=== PATIENT | male | born 1995 | race Caucasian/White ===

== ENCOUNTER 2018-04-26 08:50 | Emergency (ER) | payer MEDICAID ==
[~2018-04-26] VITALS: Ht 180.3 cm; Wt 66.0 kg
[2018-04-26 08:57] VITALS: BP 124/75
== END 2018-04-26 09:52 | disposition home or self-care (01) ==
LOC: ER 08:51
DX: S62.624A Displaced fracture of middle phalanx of right ring finger, initial encounter for closed fracture (principal); Z88.0 Allergy status to penicillin; Z88.1 Allergy status to other antibiotic agents; Z88.2 Allergy status to sulfonamides; W10.8XXA Fall (on) (from) other stairs and steps, initial encounter; Y93.89 Activity, other specified; Y92.89 Other specified places as the place of occurrence of the external cause; Y99.8 Other external cause status
CPT/HCPCS: 29130; 73140; 99284

== ENCOUNTER 2018-05-03 08:59 | Outpatient (CLI) | payer MEDICAID ==
[~2018-05-03] VITALS: Ht 152.4 cm; Wt 145.0 kg
[2018-05-03 09:01] VITALS: BP 128/57
== END 2018-05-03 09:40 | disposition home or self-care (01) ==
LOC: ORTHO 08:59
PROVIDERS: ATTEND Nurse Practitioner Family
DX: S62.607A Fracture of unspecified phalanx of left little finger, initial encounter for closed fracture (principal); F12.90 Cannabis use, unspecified, uncomplicated; Z88.0 Allergy status to penicillin; Z88.8 Allergy status to other drugs, medicaments and biological substances; Z88.2 Allergy status to sulfonamides; W01.0XXA Fall on same level from slipping, tripping and stumbling without subsequent striking against object, initial encounter; Y93.89 Activity, other specified; Y92.89 Other specified places as the place of occurrence of the external cause; Y99.8 Other external cause status
CPT/HCPCS: 99213

== ENCOUNTER 2018-06-01 09:37 | Outpatient (CLI) | payer MEDICAID ==
[2018-06-01 09:39] VITALS: BP 128/72
== END 2018-06-01 10:15 | disposition home or self-care (01) ==
LOC: ORTHO 09:37
PROVIDERS: ATTEND Nurse Practitioner Family
DX: S62.624D Displaced fracture of middle phalanx of right ring finger, subsequent encounter for fracture with routine healing (principal); F12.90 Cannabis use, unspecified, uncomplicated; Z88.0 Allergy status to penicillin; Z88.2 Allergy status to sulfonamides; Z88.1 Allergy status to other antibiotic agents; W01.0XXD Fall on same level from slipping, tripping and stumbling without subsequent striking against object, subsequent encounter
CPT/HCPCS: 73140; 99213